=== PATIENT | female | born 1955 | race Caucasian/White ===

== ENCOUNTER → 2017-08-11 | Outpatient (CLI) | payer OTHER ==
[~2017-08-11] MED LIST: ACET325; ASPI81CH; Acetaminophen325 M1 PO; Aspirin EC325 MG; CLOP75; CLOP75 PO; HYDCHL25 PO; Humalog100 UNIT/1 SC; IBUP400 PO; INSDET100 SC; INSULANPEN; IRON325 MG PO; LEVO750 PO; LO-DOSE ASPIRIN81 MG PO; LOVA40 PO; Lomotil Tablet1 EACH PO; Lovastatin10 MG; MELA3; MELA3 PO; METO5A PO; ONDA4ODT; Omeprazole20 M1 PO; PARO10 PO; TRAM50 PO; Zofran4 MG PO; [UNRECOGNIZED DRUG - REMARK] PO
[2017-08-12 11:01] LABS: Anion Gap 99 mmol/L (6-16); Blood Urea Nitrogen 26 mg/dL (8-24); Bun/Creatinine Ratio 37.1 (12.0-20.0); CO2, Blood 31 mmol/L (21-32); Calcium, Blood 9.6 mg/dL (8.5-10.1); Chloride, Blood 102 mmol/L (98-108); Glomerular Filtration Rate >60 (60-); Glucose, Blood 226 mg/dL (70-99); Sodium, Blood 142 mmol/L (136-145)
== END ==
LOC: LAB EV 19:49
PROVIDERS: Nurse Practitioner Family
DX: R53.83 Other fatigue (principal); E11.65 Type 2 diabetes mellitus with hyperglycemia; D64.9 Anemia, unspecified; B99.9 Unspecified infectious disease
CPT/HCPCS: 36415; 80048; 87070; 87077; 87186; 87205